=== PATIENT | female | born 1945 | race American Indian/Alaskan Native ===

== ENCOUNTER 2021-05-21 07:27 | Emergency (ER) | payer OTHER ==
--- NOTE | 2021-05-21 10:17 | XRay Report ---
CHEST 2 VIEWS INDICATION / CLINICAL INFORMATION: Chest Pain. COMPARISON: None available. FINDINGS: SUPPORT DEVICES: None. HEART / MEDIASTINUM: No significant abnormality. LUNGS / PLEURA: No significant pulmonary or pleural abnormality. No pneumothorax. ADDITIONAL FINDINGS: No significant additional findings. IMPRESSION: 1. No acute findings. Signer Name: Sherwin García MD Signed: 05/21/2021 10:13 AM Workstation Name: [id number]
[2021-05-21 11:15] LABS: Basophils % (Auto) 0.7 % (0.0-1.8); Eosinophils # (Auto) 0.2 K/mm3 (0.0-0.4); Eosinophils % (Auto) 2.9 % (0.0-4.3); Lymphocytes # (Auto) 1.8 K/mm3 (1.2-5.4); Lymphocytes % (Auto) 28.7 % (13.4-35.0); Mean Corpuscular HGB Conc 31 % (30-34); Mean Corpuscular Volume 84 fl (79-97); Monocytes # (Auto) 0.5 K/mm3 (0.0-0.8); Monocytes % (Auto) 7.6 % (0.0-7.3); Platelet Count 203 K/mm3 (140-440); Red Blood Count 5.26 M/mm3 (3.65-5.03); Red Cell Distribution Width 16.4 % (13.2-15.2)
[2021-05-21 11:20] LABS: Hematocrit 44.4 % (30.3-42.9); Hemoglobin 13.7 gm/dl (10.1-14.3)
[2021-05-21 11:26] LABS: INR 0.93 (0.87-1.13)
--- NOTE | 2021-05-21 11:36 | Emergency Department Report ---
ED Shortness of Breath HPI - General Chief Complaint: Chest Pain Stated Complaint: CHEST PAIN/ UPON BREATHING Time Seen by Provider: 05/21/21 10:21 Source: patient Mode of arrival: Ambulatory Limitations: No Limitations - History of Present Illness Initial Comments: Chief complaint shortness of breath HPI: This is a 75-year-old female with history of diabetes mellitus, hypothyroidism hypertension, panic disorder who presents with shortness of breath when she takes deep inhalation. She is here visiting from [place]. She does not have her medications Xanax. She had a panic attack once a month. She denies chest pain. She denies leg pain. No history of cardiac disease. MD Complaint: shortness of breath -: Gradual, month(s) (Intermittent over the last month) Severity: mild Pain Scale: 0 Consistency: now resolved Improves With: nothing Worsens With: nothing Context: other (History of panic attacks visiting from out of town needs Xanax) Associated Symptoms: denies other symptoms - Related Data Previous Rx's Medication Instructions Recorded Last Taken Type ALPRAZolam [Xanax TAB] 1 mg PO BID PRN #5 tab 05/21/21 Unknown Rx Allergies Allergy/AdvReac Type Severity Reaction Status Date / Time No Known Allergies Allergy Verified 05/21/21 08:01 ED Review of Systems ROS: Stated complaint: CHEST PAIN/ UPON BREATHING Other details as noted in HPI Comment: All other systems reviewed and negative Constitutional: denies: chills, fever, malaise Respiratory: shortness of breath. denies: cough Cardiovascular: denies: chest pain Gastrointestinal: denies: abdominal pain, nausea, vomiting ED Past Medical Hx - Past Medical History Previous Medical History?: Yes Hx Hypertension: Yes Hx Diabetes: Yes Additional medical history: hypothyroid. panic attacks - Social History Smoking Status: Never Smoker Substance Use Type: None - Medications Home Medications: Home Medications Medication Instructions Recorded Confirmed Last Taken Type ALPRAZolam [Xanax TAB] 1 mg PO BID PRN #5 tab 05/21/21 Unknown Rx ED Physical Exam - General Limitations: No Limitations General appearance: alert, in no apparent distress - Head Head exam: Present: atraumatic, normocephalic - Eye Eye exam: Present: normal appearance - ENT ENT exam: Present: mucous membranes moist - Neck Neck exam: Present: normal inspection, full ROM - Respiratory Respiratory exam: Present: normal lung sounds bilaterally. Absent: respiratory distress, wheezes, rales, rhonchi - Cardiovascular Cardiovascular Exam: Present: regular rate, normal rhythm, normal heart sounds. Absent: systolic murmur, diastolic murmur, rubs, gallop - GI/Abdominal GI/Abdominal exam: Present: soft, normal bowel sounds. Absent: distended, tenderness, guarding, rebound - Extremities Exam Extremities exam: Present: normal inspection - Neurological Exam Neurological exam: Present: alert, oriented X3 - Psychiatric Psychiatric exam: Present: normal affect, normal mood - Skin Skin exam: Present: warm, dry, intact, normal color. Absent: rash ED Course Vital Signs 05/21/21 07:56 Temperature 97.5 F L Pulse Rate 91 H Respiratory 24 Rate Blood Pressure 146/93 O2 Sat by Pulse 97 Oximetry ED Medical Decision Making - Lab Data Result diagrams: 05/21/21 10:29 05/21/21 10:29 Laboratory Results - last 24 hr 05/21/21 05/21/21 10:29 10:41 WBC 6.3 RBC 5.26 H Hgb 13.7 Hct 44.4 H MCV 84 MCH 26 L MCHC 31 RDW 16.4 H Plt Count 203 Lymph % (Auto) 28.7 [place] % (Auto) 7.6 H Eos % (Auto) 2.9 Baso % (Auto) 0.7 Lymph # (Auto) 1.8 [place] # (Auto) 0.5 Eos # (Auto) 0.2 Baso # (Auto) 0.0 Seg Neutrophils % 60.1 Seg Neutrophils # 3.8 PT 13.5 INR 0.93 - EKG Data -: EKG Interpreted by Sc EKG shows normal: sinus rhythm, axis, QRS complexes, ST-T waves Rate: normal - EKG Data 05/21/21 11:35 EKG obtained 1022 EKG interpreted by fl Rate 75 bpm normal sinus rhythm normal axis prolonged LA interval normal QTC no ST elevation nonischemic T wave pattern - Radiology Data Radiology results: report reviewed Patient Name: LORNA STERN Gender: Female Date of : 1945 Home Phone: Referring Provider: TORRES RAND Organization: [facility] Accession Number: [id number] Requested Date: May 21, 2021 09:53 Report Status: Final Requested Procedure: 1 Procedure Description: XR chest routine 2V Modality: XR Findings Reporting MD: Sherwin García Dictation Time: May 21, 2021 09:13 Livestock Yard Attendant: Not available Physician/Allergy/Immunology Date: CHEST 2 VIEWS INDICATION / CLINICAL INFORMATION: Chest Pain. COMPARISON: None available. FINDINGS: SUPPORT DEVICES: None. HEART / MEDIASTINUM: No significant abnormality. LUNGS / PLEURA: No significant pulmonary or pleural abnormality. No pneumothorax. ADDITIONAL FINDINGS: No significant additional findings. IMPRESSION: 1. No acute findings. Signer Name: Sherwin García MD Signed: 05/21/2021 9:13 AM Workstation Name: [id number] - Medical Decision Making Panic disorder: EKG x-ray troponin CBC chemistry PT PTT all unremarkable. No indication of ACS arrhythmia or pulmonary embolism. Patient received prescription for 5 doses of Xanax. Critical care attestation.: If time is entered above; I have spent that time in minutes in the direct care of this critically ill patient, excluding procedure time. ED Disposition Clinical Impression: Panic disorder, Medication refill Disposition: HOME / SELF CARE / HOMELESS Is pt being admited?: No Does the pt Need Aspirin: No Condition: Stable Instructions: Managing Anxiety, Adult, Panic Attack, [id number] Prescriptions: ALPRAZolam [Xanax TAB] 1 mg PO BID PRN #5 tab PRN Reason: anxiety/panic attack Referrals: MOLINA LE MD [Staff Physician] - as needed
[2021-05-21 12:23] LABS: Alanine Aminotransferase 12 units/L (7-56); Albumin 4.1 g/dL (3.9-5); Blood Urea Nitrogen 6 mg/dL (7-17); Calcium 9.4 mg/dL (8.4-10.2); Hemolysis Index 7
[2021-05-21 12:55] LABS: BUN/Creatinine Ratio 10
[2021-05-21 12:57] VITALS: BP 156/95
--- NOTE | 2021-05-22 18:13 | Electrocardiograph Report ---
[facility] Test Date: 2021-05-21 Test Time: 10:22:20 Pat Name: LORNA STERN Department: Room: Gender: F Financial Management Consultant: CARLOS : 1945 Requested By: TORRES RAND Order Number: [id number] Reading MD: Alan Hutson Measurements Intervals [place] Rate: 75 P: 4 ND: 303 QRS: 1 QRSD: 97 T: 32 QT: 412 QTc: 462 Interpretive Statements Sinus rhythm Prolonged ND interval No previous ECG available for comparison Electronically Signed On 05-22-2021 18:13:51 EST by Alan Hutson
== END 2021-05-21 12:57 | disposition home or self-care (01) ==
LOC: ED 07:27
DX: F41.0 Panic disorder [episodic paroxysmal anxiety] (principal); Z76.0 Encounter for issue of repeat prescription; E11.9 Type 2 diabetes mellitus without complications; I10 Essential (primary) hypertension; E03.9 Hypothyroidism, unspecified
CPT/HCPCS: 36415; 71046; 80053; 84484; 85025; 85610; 93005; 99284